=== PATIENT | female | born 1975 | race African-American/Black ===

== ENCOUNTER 2018-11-10 15:19 | Emergency (ER) | payer OTHER ==
[2018-11-10 18:33] LABS: ADD MAN DIFF? NO
[2018-11-10 18:34] LABS: WHITE BLOOD COUNT 9.9 10^3/ul (4.8-10.8)
[2018-11-10 18:34] LABS: BASOPHILS % 0.4 % (0.0-2.0); EOSINOPHILS # 0.3 10^3/ul (0.0-0.5); EOSINOPHILS % 2.5 % (0.0-7.0); HEMATOCRIT 43.2 % (37.0-47.0); LYMPHOCYTES # 2.9 10^3/ul (0.8-2.9); LYMPHOCYTES % 28.9 % (15.0-51.0); MEAN CORPUSCULAR HGB CONC 32.4 g/dl (32.0-37.0); MEAN CORPUSCULAR VOLUME 83.4 fl (82.0-101.0); MEAN PLATELET VOLUME 11.5 fl (7.4-10.4); MONOCYTE # 0.5 10^3/ul (0.3-0.9); MONOCYTES % 5.4 % (0.0-11.0); NEUTROPHIL # 6.2 10^3/ul (1.6-7.5); NEUTROPHILS % 62.5 % (39.0-77.0); PLATELET COUNT 448 10^3/UL (140-415); RED BLOOD COUNT 5.18 10^6/ul (4.20-5.40); RED CELL DISTRIBUTION WIDTH 14.4 % (11.5-14.5)
[2018-11-10 18:59] LABS: ANION GAP 8 (5-13); BLOOD UREA NITROGEN 9 mg/dl (7-20); CALCIUM 9.7 mg/dl (8.4-10.2); CARBON DIOXIDE 22 mmol/L (21-31); CHLORIDE 110 mmol/L (97-110); CREATININE 0.83 mg/dl (0.44-1.00); Estimated GFR > 60 mL/min (>60); GLUCOSE 96 mg/dl (70-220); POTASSIUM 4.6 mmol/L (3.5-5.1); SODIUM 140 mmol/L (135-144)
[2018-11-10 19:07] LABS: B-TYPE NATRIURETIC PEPTIDE 31 PG/ML (0-125)
== END 2018-11-10 22:10 | disposition home or self-care (01) ==
LOC: FTE 22:10
DX: R20.2 Paresthesia of skin (principal); J45.909 Unspecified asthma, uncomplicated; R06.82 Tachypnea, not elsewhere classified
CPT/HCPCS: 36415; 70450; 72125; 80048; 83880; 85025; 93005; 99285-25